=== PATIENT | male | born 1995 | race Caucasian/White ===

== ENCOUNTER 2019-06-10 12:08 | Emergency (ER) | payer OTHER ==
[~2019-06-10] VITALS: Ht 188 cm; Wt 111.6 kg
[2019-06-10 12:25] VITALS: BP 139/67
--- NOTE | 2019-06-10 12:38 | NUR ---
C/O RLQ PAIN X2 DAYS WITH NAUSEA, DENIES VOMITING. PAIN IS INTERMITTENT, SHARP, 10/10 AT THIS TIME, SOMETIMES RADIATES UP TO RT SHOULDER. TX AT HOME WITH TYLENOL WHICH PT STATES MADE PAIN WORSE. SITTING DOWN ALSO WORSENS PAIN. PAIN RELIEVED BY "WALKING WITH BODY BEND FORWARD". LBM YESTERDAY, NORMAL CONSISTENCY. NORMOACTIVE BS. RT ABD TENDER TO PALPATION. HX DENIES
--- NOTE | 2019-06-10 12:44 | NUR ---
[facility] HERE TO TAKE PT FOR XRAY.
--- NOTE | 2019-06-10 12:50 | NUR ---
PT BACK FROM XRAY
--- NOTE | 2019-06-10 13:18 | NUR ---
DR. ROBLEDO EVALUATING PT AT BEDSIDE.
[2019-06-10] MEDS ORDERED: NACL 0.9% 1,000 ML IV ONE (14:00)
[2019-06-10] MEDS ORDERED: KETOROLAC 30 MG/ML VIAL IVP ONE (14:00)
[2019-06-10 14:09] LABS: BASOPHILS % (AUTO) 0.4 % (0.0-2.0); EOSINOPHILS # (AUTO) 0.1 K/uL (0-0.4); EOSINOPHILS % (AUTO) 1.3 % (0.0-4.0); HEMATOCRIT 44.6 % (36-52); HEMOGLOBIN 14.9 g/dL (12.0-18.0); LYMPHOCYTES # (AUTO) 1.6 K/uL (2.0-11.5); LYMPHOCYTES % (AUTO) 20.2 % (20.5-51.1); MEAN CORPUSCULAR HEMOGLOBIN 28 pg (27-31); MEAN CORPUSCULAR HGB CONC 33 g/dL (33-37); MEAN CORPUSCULAR VOLUME 85.2 fL (80-94); MONOCYTES # (AUTO) 0.5 K/uL (0.8-1.0); MONOCYTES % (AUTO) 6.6 % (1.7-9.3); NEUTROPHILS # (AUTO) 5.7 K/uL (1.8-7.7); NEUTROPHILS % (AUTO) 71.5 % (42.2-75.2); PLATELET COUNT (AUTO) 248 K/uL (140-450); RED BLOOD CELL COUNT(AUTO) 5.23 MIL/uL (4.20-6.10); RED CELL DISTRIBUTION WIDTH 12.9 % (11.6-13.7)
--- NOTE | 2019-06-10 14:50 | NUR ---
PT RESTING IN BED, LOOKING AT CELLPHONE. STATES 07/07 PAIN, PT STATES HE TALKED TO DR. ROBLEDO ABOUT PAIN ALREADY.
[2019-06-10 15:06] LABS: CARBON DIOXIDE 32.5 mmol/L (21-32); POTASSIUM 4.5 mmol/L (3.5-5.1)
[2019-06-10 15:07] LABS: ANION GAP 0.7 (8-16); TOTAL BILIRUBIN 0.7 mg/dL (0.0-1.0)
[2019-06-10 15:08] LABS: ALBUMIN 3.8 g/dL (3.4-5.0)
[2019-06-10] MEDS ORDERED: traMADol 50 MG TAB PO ONE (15:45)
--- NOTE | 2019-06-10 16:45 | NUR ---
NOTIFIED DR. ROBLEDO THAT MOTHER IS AT BEDSIDE.
--- NOTE | 2019-06-10 17:27 | NUR ---
Patient discharged with v/s stable. Written and verbal after care instructions given and explained. Patient verbalized understanding. Ambulatory with steady gait. All questions addressed prior to discharge. Advised to follow up with PMD.
[2019-06-10 17:28] VITALS: BP 132/69
== END 2019-06-10 17:27 | disposition home or self-care (01) ==
LOC: MED 12:08
DX: R10.11 Right upper quadrant pain (principal)
CPT/HCPCS: 36415; 74018; 80053; 85025; 96374; 99284; J1885; J7030

== ENCOUNTER 2023-07-16 10:36 | Emergency (ER) | payer OTHER ==
[~2023-07-16] VITALS: Ht 190.5 cm; Wt 108.0 kg
[2023-07-16 11:40] VITALS: BP 113/69; PULSE 68; RESP 20; TEMP 98; O2SAT 98
[2023-07-16] MEDS ORDERED: ONDANSETRON 4 MG/2 ML VIAL IVP ONE (14:10)
[2023-07-16] MEDS ORDERED: MORPHINE SULFATE 4 MG/ML SYR IVP ONE (14:10)
[2023-07-16 14:28] VITALS: TEMP 98
[2023-07-16 14:29] VITALS: O2SAT 98
[2023-07-16] MEDS ORDERED: ACET-8905 PO (14:41)
[2023-07-16] MEDS ORDERED: ONDA8TAB87 PO (14:41)
[2023-07-16] MEDS ORDERED: IBUP-2213 PO (14:41)
[2023-07-16 14:49] VITALS: BP 115/64; PULSE 74; RESP 17; O2SAT 98
== END 2023-07-16 14:50 | disposition home or self-care (01) ==
LOC: MED 10:36
DX: R10.84 Generalized abdominal pain (principal); Z90.49 Acquired absence of other specified parts of digestive tract
CPT/HCPCS: 96374; 96375; 99284; J2270; J2405